=== PATIENT | female | born 1990 | race Caucasian/White ===

== ENCOUNTER 2016-12-10 11:12 | Emergency (ER) | payer OTHER ==
[~2016-12-10] VITALS: Ht 162.5 cm; Wt 59.9 kg
[~2016-12-10 11:12] MED LIST: VISTARIL25 MG PO
[2016-12-10] MEDS ORDERED: TRINTELLIX20 MG PO (11:21)
[2016-12-10] MEDS ORDERED: ZIPRASIDONE HCL20 M1 PO (11:21)
[2016-12-10] MEDS ORDERED: DEXTROAMPH SACC10 M1 PO (11:21)
== END 2016-12-10 11:37 | disposition home or self-care (01) ==
LOC: ED 11:12
DX: S61.212A Laceration without foreign body of right middle finger without damage to nail, initial encounter (principal); S61.210A Laceration without foreign body of right index finger without damage to nail, initial encounter; Z23 Encounter for immunization; Z91.018 Allergy to other foods; Z79.899 Other long term (current) drug therapy; W45.8XXA Other foreign body or object entering through skin, initial encounter; Y93.89 Activity, other specified; Y92.89 Other specified places as the place of occurrence of the external cause; Y99.8 Other external cause status